=== PATIENT | female | born 2000 | race Caucasian/White ===

== ENCOUNTER 2020-06-02 23:09 | Emergency (ER) | payer OTHER ==
[~2020-06-02] VITALS: Ht 160 cm; Wt 94.3 kg
[2020-06-02 23:46] VITALS: Ht 160 cm; Wt 94.3 kg
[2020-06-03] MEDS ORDERED: AMOXICILLIN500 MG PO (00:19)
[2020-06-03] MEDS ORDERED: MOT800 PO (00:19)
[2020-06-03 00:41] VITALS: BP 120/75
== END 2020-06-03 00:41 | disposition home or self-care (01) ==
LOC: ED 23:09
DX: J02.9 Acute pharyngitis, unspecified (principal); R51.9 Headache, unspecified
CPT/HCPCS: J1100